=== PATIENT | female | born 1965 | race Caucasian/White ===

== ENCOUNTER 2018-03-26 12:51 | Inpatient (IN) | payer MEDICAID ==
[~2018-03-26] VITALS: Ht 167.6 cm; Wt 108.9 kg
--- NOTE | 2018-03-26 12:51 | NUR ---
Patient BIBA BLS accompanied by [place] [employer], transferred to bed 7. RN evaluating patient at bedside.
[2018-03-26 13:02] VITALS: BP 158/108
--- NOTE | 2018-03-26 13:10 | NUR ---
PATIENT BIBA WITH COMPLAINTS OF SHORTNESS OF BREATH AND 5150 HOLD [address]ACEMENT. PATIENT IS GRAVELY DISABLED. LIVES IN A HOTEL THAT IS OVERRUN BY BUGS. PATIENT HAS ANTS CRAWLING OVER HER. PATIENT ALSO HAS RASH OVER LOWER ABDOMEN, PELVIC ARE, AND BETWEEN LEGS; PICTURES TAKEN. PATIENT CONFUSED. NO COMPLAINTS OF PAIN, VSS. PATIENT STATES SHE CAN'T BREATH, APPLIED 2L O2 VIA NASAL CANNULA. ASSISTED PATIENT INTO A GOWN, SITTING UP IN BED. ED MD MADE AWARE OF PATIENT STATUS.
--- NOTE | 2018-03-26 13:14 | NUR ---
Dr. Hensley evaluating patient at bedside.
[2018-03-26] MEDS ORDERED: NACL 0.9% 1,000 ML IV ONE ×2 (13:23→15:00)
[2018-03-26 13:58] LABS: BASOPHILS # (AUTO) 0.1 K/uL (0.00-0.22); BASOPHILS % (AUTO) 0.5 % (0.0-2.0); HEMOGLOBIN 13.8 g/dL (12.0-16.0); LYMPHOCYTES % (AUTO) 7.4 % (20.5-51.1); MEAN CORPUSCULAR HEMOGLOBIN 30 pg (27-31); MEAN CORPUSCULAR HGB CONC 31 g/dL (33-37); MEAN CORPUSCULAR VOLUME 98.2 fL (80-94); MONOCYTES # (AUTO) 0.7 K/uL (0.8-1.0); MONOCYTES % (AUTO) 5.6 % (1.7-9.3); NEUTROPHILS # (AUTO) 11.3 K/uL (1.8-7.7); NEUTROPHILS % (AUTO) 86.5 % (42.2-75.2); PLATELET COUNT (AUTO) 364 K/uL (140-450); RED BLOOD CELL COUNT(AUTO) 4.58 MIL/uL (4.20-5.40); RED CELL DISTRIBUTION WIDTH 16.7 % (11.6-13.7); WHITE BLOOD COUNT (AUTO) 13.1 K/uL (4.8-10.8)
[2018-03-26 14:39] LABS: ALBUMIN 3.4 g/dL (3.4-5.0); ASPARTATE AMINOTRANSFERASE 115 U/L (15-37)
[2018-03-26 14:40] LABS: ANION GAP 27.9 (8-16); CARBON DIOXIDE 10.9 mmol/L (21-32); CHLORIDE 99 mmol/L (98-107); CREATININE 1.5 mg/dL (0.6-1.3); GFR ARICAN-AMERICAN 47 mL/min (>90); POTASSIUM 4.8 mmol/L (3.5-5.1); SODIUM SERUM 133 mmol/L (136-145); UREA NITROGEN, BLOOD 27 mg/dL (7-18)
[2018-03-26 14:43] LABS: GLUCOSE 874 mg/dL (74-106)
[2018-03-26] MEDS ORDERED: INSULIN REGULAR, HUMAN 100 UNIT/ML VIAL SUBQ ONE (15:00)
[2018-03-26 15:15] LABS: MAGNESIUM 2.6 mg/dL (1.8-2.4)
[2018-03-26 15:15] LABS: APPEARANCE,URINE CLEAR (CLEAR); BILIRUBIN,URINE NEGATIVE (NEGATIVE); BLOOD, URINE 2+ (NEGATIVE); COLOR,URINE YELLOW (YELLOW); LEUKOCYTE ESTERASE ,URINE NEGATIVE (NEGATIVE); NITRITE, URINE NEGATIVE (NEGATIVE); PH,URINE 5.5 (5.0-9.0); UGLUCOSE 3+ (NEGATIVE)
[2018-03-26 15:21] LABS: BARBITURATE, URINE NEG. ng/ml (NEG <=200); BENZODIAZEPINE, URINE NEG. ng/mL (NEG <=200); CANNABINOID, URINE NEG. ng/mL (NEG <=50); COCAINE, URINE NEG. ng/mL (NEG <=300); OPIATE, URINE NEG. ng/mL (NEG <=2000); PHENCYCLIDINE SCREEN,URINE NEG. ng/mL (NEG <=25)
[2018-03-26 15:40] LABS: ACETONE, SERUM LARGE (NEGATIVE)
[2018-03-26] MEDS ORDERED: SODIUM BICARBONATE 8.4% PFS 50 MEQ/50 ML SYR IVP ONE (15:50)
[2018-03-26 15:53] LABS: RBC,URINE 0-5 (RARE) /HPF (0-5); YEAST,URINE Few /HPF (None Seen)
[2018-03-26] MEDS ORDERED: DEXT 5% / NACL 0.45% 1,000 ML IV ONE (16:23)
[2018-03-26] MEDS: NACL 0.9% 1,000 ML IV SCH ×2 (16:23→21:38)
[2018-03-26] MEDS ORDERED: ZOLPIDEM 5 MG TAB PO PRN (16:25)
[2018-03-26] MEDS ORDERED: INSULIN REGULAR, HUMAN 100 UNIT in NACL 0.9% 100 ML IV SCH ×2 (16:25)
[2018-03-26] MEDS ORDERED: ONDANSETRON 4 MG/2 ML VIAL IVP PRN (16:25)
[2018-03-26] MEDS ORDERED: ACETAMINOPHEN 325 MG TAB PO PRN (16:25)
[2018-03-26] MEDS ORDERED: DEXTROSE 50% 50 ML SYR IVP PRN (16:25)
--- NOTE | 2018-03-26 16:50 | NUR ---
Patient appears to be resting comfortably in bed. Vital Signs within normal limits. Respirations even and unlabored.
--- NOTE | 2018-03-26 16:58 | NUR ---
Dr. Dimas evaluating patient at bedside.
[2018-03-26 17:16] LABS: FREE T4 (FREE THYROXINE) 0.96 ng/dL (0.76-1.46); PHOSPHORUS 5.1 mg/dL (2.5-4.9); THYROID STIMULATING HORMONE 1.22 uIU/mL (0.34-3.74)
--- NOTE | 2018-03-26 17:20 | NUR ---
Patient appears to be resting comfortably in bed. Vital Signs within normal limits. Respirations even and unlabored.
[2018-03-26] MEDS: BLOOD GLUCOSE MONITORING 1 DEV DEV FS SCH ×9 (17:25→23:46)
[2018-03-26] MEDS ORDERED: LORazepam 2 MG/ML VIAL IVP SCH (18:00)
--- NOTE | 2018-03-26 18:20 | NUR ---
ADMITTED PT FROM ER BY LACEY, PT AWAKE BUT EPISODES OF CONFUSION NOTED. HOOKED PT TO BEDSIDE MONITOR SHOWING SR, ON O2 NC 2L/MIN, NO S/S OF RESPIRATORY DISTRESS NOTED. IV SITE INTACT AND PATENT. SKIN NON INTACT ( SEE WOUND ASSESSMENT) PT ABLE TO MOVE HER EXTREMITIES. ORIENTED PT ENVIRONMENT, CALL LIGHT IN REACH, WILL CONTINUE TO MONITOR. Addendum: 03/26/18 at 2257 by Richard Parra RN BEDSIDE MONITOR SHOWS ST
[2018-03-26] MEDS ORDERED: INSULIN REGULAR, HUMAN 100 UNIT/ML VIAL SUBQ SCH (18:30)
--- NOTE | 2018-03-26 18:45 | NUR ---
CENTRAL LINE CONSENT OBTAINED AT PER DR. MICHELE.
[2018-03-26 19:00] VITALS: BP 130/57
--- NOTE | 2018-03-26 19:00 | NUR ---
REPORT GIVEN TO PM NURSE KOFI
[2018-03-26] MEDS ORDERED: PIPERACILLIN/TAZOBACTAM 2.25 GM VIAL IV ONE ×2 (19:02→23:57)
--- NOTE | 2018-03-26 19:10 | NUR ---
RECEIVED BEDSIDE REPORT FROM MORNING NURSE, PATIENT AWAKE, AAO X2, ABLE TO MAKE NEEDS KNOWN AND FOLLOW COMMANDS. NO ACUTE DISTRESS NOTED. BILATERAL LUNGS SOUND CLEAR, O2 SAT 99% WITH 2L/M OXYGEN VIA NC. ST ON THE MONITOR. HR 112 NOTED. PATIENT ABLE TO MOVE BUE/BLE, SLIGHTLY GENERALIZED WEAKNESS NOTED. PT HAS PERIPHERAL LINE TO LEFT AC 20G RUNNING WITH INSULIN DRIP 10UNITS/HR AND NS 200ML/HR. LINE IS INTACT AND PATENT. PATIENT HAS RASH TO BILATERAL THIGHS AND ABDOMEN NOTED. DENIES ANY PAIN OR DISCOMFORT AT THIS TIME. AT BEDSIDE TO INSERT CENTRAL LINE. CALL LIGHT WITHIN REACH. WILL CONTINUE TO MONITOR.
[2018-03-26 20:00] VITALS: BP 155/91
--- NOTE | 2018-03-26 20:20 | NUR ---
AT BEDSIDE TO CHECK THE PATIENT, WILL FOLLOW THE ORDERS.
[2018-03-26 21:00] VITALS: BP 145/74
[2018-03-26] MEDS: NACL 0.9% IV SCH (21:27)
[2018-03-26] MEDS: PIPERACILLIN IV SCH (21:27)
[2018-03-26] MEDS: TAZOBACTAM IV SCH (21:27)
[2018-03-26] MEDS: DOCUSATE SODIUM 100 MG GELCAP PO SCH (21:37)
[2018-03-26 22:00] VITALS: BP 150/87
--- NOTE | 2018-03-26 22:30 | NUR ---
PATIENT IN ASLEEP, AROUSABLE TO VOICE. NO ACUTE DISTRESS NOTED. DENIES ANY PAIN OR DISCOMFORT. ST ON THE MONITOR. CONTINUE TO MONITOR BS EVERY HOURLY.
[2018-03-26 23:00] VITALS: BP 127/54
[2018-03-26] MEDS ORDERED: DEXT 5% / NACL 0.45% 1,000 ML IV SCH (23:45)
[2018-03-27] VITALS (13 sets, daily range): BP systolic 127–157; BP diastolic 43–110
[2018-03-27 00:24] LABS: ANION GAP 18.1 (8-16); CREATININE 1.1 mg/dL (0.6-1.3); POTASSIUM 3.1 mmol/L (3.5-5.1)
[2018-03-27] MEDS: PIPERACILLIN IV SCH ×2 (00:27→06:37)
[2018-03-27] MEDS: TAZOBACTAM IV SCH ×2 (00:27→06:37)
[2018-03-27] MEDS: BLOOD GLUCOSE MONITORING 1 DEV DEV FS SCH ×21 (00:27→20:34)
[2018-03-27] MEDS: NACL 0.9% IV SCH ×2 (00:27→06:37)
--- NOTE | 2018-03-27 01:50 | NUR ---
NOTIFIED TO ABOUT BS 212 AND POTASSIUM 3.1. STATED THAT SHE WILL ORDER TO REPLACE THE POTASSIUM. WILL FOLLOW THE ORDERS.
[2018-03-27] MEDS ORDERED: POTASSIUM CHLORIDE 40 MEQ in NACL 0.9% 1,000 ML IV SCH ×2 (02:30→16:23)
[2018-03-27] MEDS ORDERED: KCL 20 MEQ/WATER INJ PREMIX 100 ML IV SCH (03:00)
[2018-03-27] MEDS ORDERED: POTASSIUM CHLORIDE 8 MEQ TABER PO SCH (03:00)
[2018-03-27] MEDS ORDERED: SODIUM PHOS / POTASSIUM PHOS 1 PKT PDR PO SCH (03:00)
--- NOTE | 2018-03-27 03:15 | NUR ---
ADMINISTERED POTASSIUM 8MEQ , NEUTRO PHOS 1 PACKET BY MOUTH, PATIENT TOLERATED WELL. NO ACUTE DISTRESS NOTED. WILL CONTINUE TO MONITOR.
--- NOTE | 2018-03-27 04:36 | NUR ---
DR. MIGUEL MADE AWARE OF BG=71 AND ANION GAP, K, MG, AND PHOS RESULTS. Addendum: 03/27/18 at 1649 by Leslie Bermeo RN DELETE THE CHARTING. WRONG TIME ENTERED.
--- NOTE | 2018-03-27 05:00 | NUR ---
PATIENT IN ASLEEP AT THIS TIME, AROUSABLE TO VOICE. NO ACUTE DISTRESS NOTED. DENIES PAIN OR DISCOMFORT. WILL CONTINUE TO MONITOR.
[2018-03-27] MEDS ORDERED: COMMUNICATION ORDER MC PRN ×2 (05:05→07:25)
[2018-03-27 06:20] LABS: ANION GAP 14.7 (8-16); CARBON DIOXIDE 16.6 mmol/L (21-32); CREATININE 1.1 mg/dL (0.6-1.3); POTASSIUM 3.3 mmol/L (3.5-5.1)
[2018-03-27 06:24] LABS: CHOL/HDL RATIO 3.6 (1-4.5)
--- NOTE | 2018-03-27 07:00 | NUR ---
PATIENT TO CT HEAD AT THIS TIME, NO ACUTE DISTRESS NOTED. VSS. DENIES PAIN AT THIS TIME.
[2018-03-27] MEDS ORDERED: DEXT 5% / NACL 0.45% 1,000 ML IV SCH (07:25)
--- NOTE | 2018-03-27 07:25 | NUR ---
RECEIVED BEDSIDE REPORT FROM RESIDENT CARE AID RN. PT JUST CAME BACK FROM CT SCAN. NO S/SX OF ACUTE DISTRESS NOTED AT THIS TIME. AFEBRILE. PT IS ALERT AND ORIENTED X 2, FOLLOWS SIMPLE COMMANDS AND ABLE TO MAKE NEEDS KNOWN. SINUS RHYTHM ON MONITOR, S1 +S2 HEARD. PT IS ON ROOM AIR, O2 SAT 98%, BREATHING EVEN AND UNLABORED, NO SOB NOTED. CENTRAL LINE TLC TO RIGHT IJ ASYMPTOMATIC, PATENT AND INTACT, RECEIVING INSULIN DRIP AT 10 UNITS/HR AND NORMAL SALINE AT 200 ML/HR. ABDOMEN ROUND, SOFT, NONTENDER W/ ACTIVE BOWEL SOUNDS. SKIN IS DRY AND WARM TO TOUCH. RASHES TO BILATERAL THIGHS, ABDOMEN AND BUTTOCKS AREA NOTED. PT IS ABLE TO MOVE ALL EXTREMITIES AND ABLE TO REPOSITION BY HERSELF. MILD WEAKNESS NOTED. NO C/O PAIN OR DISCOMFORT AT THIS TIME. BED IN LOWEST POSITION AND CALL LIGHT WITHIN REACH. WILL CONTINUE TO MONITOR.
--- NOTE | 2018-03-27 07:30 | NUR ---
DR. HUANG AT BEDSIDE TO SEE AND EXAMINE PT. WILL FOLLOW UP ON ORDERS.
--- NOTE | 2018-03-27 07:36 | NUR ---
REPORT GIVEN TO MORNING NURSE FOR CONTINUITY OF CARE.
[2018-03-27] MEDS ORDERED: CALCIUM ACETATE 667 MG TAB PO SCH (08:00)
--- NOTE | 2018-03-27 08:04 | NUR ---
CALLED DR MIKI HUANG [phone] REVIEWED [facility] SAMPLE REPORT NO NEW ORDERS
[2018-03-27 08:19] LABS: ANION GAP 14.9 (8-16); BASOPHILS # (AUTO) 0.1 K/uL (0.00-0.22); BASOPHILS % (AUTO) 0.5 % (0.0-2.0); CARBON DIOXIDE 17.7 mmol/L (21-32); CREATININE 1.2 mg/dL (0.6-1.3); EOSINOPHILS # (AUTO) 0.1 K/uL (0-0.4); EOSINOPHILS % (AUTO) 0.9 % (0.0-4.0); HEMATOCRIT 35.7 % (36-48); HEMOGLOBIN 12.1 g/dL (12.0-16.0); LYMPHOCYTES # (AUTO) 1.6 K/uL (2.5-16.5); LYMPHOCYTES % (AUTO) 14.7 % (20.5-51.1); MEAN CORPUSCULAR HEMOGLOBIN 31 pg (27-31); MEAN CORPUSCULAR HGB CONC 34 g/dL (33-37); MEAN CORPUSCULAR VOLUME 90.5 fL (80-94); MONOCYTES # (AUTO) 0.8 K/uL (0.8-1.0); MONOCYTES % (AUTO) 7.9 % (1.7-9.3); NEUTROPHILS # (AUTO) 8.1 K/uL (1.8-7.7); PLATELET COUNT (AUTO) 239 K/uL (140-450); RED BLOOD CELL COUNT(AUTO) 3.95 MIL/uL (4.20-5.40); RED CELL DISTRIBUTION WIDTH 14.6 % (11.6-13.7); WHITE BLOOD COUNT (AUTO) 10.7 K/uL (4.8-10.8)
[2018-03-27 08:21] LABS: POTASSIUM 2.6 mmol/L (3.5-5.1)
[2018-03-27] MEDS: FLUCONAZOLE 100 MG TAB PO SCH (08:22)
[2018-03-27] MEDS: DOCUSATE SODIUM 100 MG GELCAP PO SCH ×2 (08:22→20:35)
[2018-03-27] MEDS: CALCIUM CARB/VIT-D 500 MG/200 IU 1 TAB PO SCH (08:22)
--- NOTE | 2018-03-27 08:22 | NUR ---
CRITICAL LAB RESULTS RECEIVED. NOTIFIED THE FINDINGS TO DR. MIGUEL. WILL SEE THE PT.
[2018-03-27] MEDS: POTASSIUM CHL 40 MEQ/ D5-1/2NS 1,000 ML IV SCH ×3 (08:37→17:22)
[2018-03-27] MEDS ORDERED: MAGNESIUM OXIDE 400 MG TAB PO SCH (09:00)
--- NOTE | 2018-03-27 09:00 | NUR ---
BED BATH GIVEN. PT TOLERATED WELL. PT VOIDED USING URINAL, CLEAR YELLOW URINE NOTED. NO S/SX OF DISTRESS NOTED.
--- NOTE | 2018-03-27 09:10 | NUR ---
BREAKFAST PROVIDED AND NEEDS WELL ATTENDED. PT ABLE TO EAT INDEPENDENTLY. HOB ELEVATED, BED IN LOWEST POSITION AND SAFETY PRECAUTIONS IN PLACE. WILL CONTINUE TO MONITOR.
[2018-03-27] MEDS: KCL 20 MEQ/WATER INJ PREMIX 100 ML IV SCH ×2 (09:30→11:30)
--- NOTE | 2018-03-27 09:36 | NUR ---
NEW K-RIDER ORDER NOTED TO BE GIVEN AT 9:30AM AND D5 1/2NS WITH KCL 40 mEq FLUID IS BEING ADMINISTERED AT THIS TIME WELL. CALLED DR. HUANG AND ORDER RECEIVED NOT TO ADMINISTER K-RIDER AND HE WILL RE-CHECK THE SERUM K LEVEL THAT IS SCHEDULED TO BE DRAWN AT NOON. NOTED AND CARRIED OUT.
[2018-03-27] MEDS: SODIUM PHOS / POTASSIUM PHOS 1 PKT PDR PO SCH ×3 (09:42→16:32)
[2018-03-27] MEDS: QUEtiapine FUMARATE 25 MG TAB PO SCH ×2 (09:42→20:35)
[2018-03-27] MEDS: NYSTATIN/TRIAMCINOLONE CRM 15 GM TUBE TP SCH ×2 (09:43→20:35)
--- NOTE | 2018-03-27 10:39 | NUR ---
PT'S FATHER AT BEDSIDE, UPDATES GIVEN ON PT'S CONDITION. PT IS SLEEPING COMFORTABLY, NO SIGNS OF DISTRESS NOTED AT THIS TIME. VSS. WILL CONTINUE TO MONITOR.
--- NOTE | 2018-03-27 11:00 | NUR ---
ULTRA SOUND TECH AT BED SIDE.
--- NOTE | 2018-03-27 11:12 | NUR ---
DR. BATRES, DR. BCUIO, AND DR. GONZALEZ AT BED SIDE. WILL FOLLOW UP WITH ANY ORDERS.
--- NOTE | 2018-03-27 11:40 | NUR ---
ULTRASOUND FOR LOWER EXTREMITIES COMPLETED. PT IS ASLEEP AT THIS TIME. VSS.
[2018-03-27] MEDS ORDERED: PIPER/TAZO 2.25GM/D5W PREMIX 50 ML IV SCH (12:00)
--- NOTE | 2018-03-27 12:00 | NUR ---
LUNCH SERVED. PT'S FATHER AT BEDSIDE. NO C/O DISCOMFORT AND NO SIGNS OF DISTRESS NOTED AT THIS TIME. SAFETY MEASURES ENSURED.
--- NOTE | 2018-03-27 12:12 | NUR ---
CALLED DR MIKI HUANG [phone] PER DR ANKIT MINER MD NOT IN AREA WILL HAVE HIM CALL BACK
[2018-03-27 12:15] LABS: ANION GAP 12.2 (8-16); CARBON DIOXIDE 17.8 mmol/L (21-32)
[2018-03-27] MEDS: PIPER/TAZO 3.375GM/D5W PREMIX 50 ML IV SCH ×2 (12:44→20:35)
--- NOTE | 2018-03-27 14:30 | NUR ---
PT'S BLOOD SUGAR IS 101. PT STILL RECEIVING INSULIN DRIP AT 5 UNITS/HR AND IV FLUID D5 1/2NS W/ 40 MEQ KCL AT 250 ML/HR (MAX RATE). DR. HUANG MADE AWARE OF BLOOD SUGAR. PER DR. HUANG, CONTINUE INSULIN DRIP AND IV FLUID ORDERED UNTIL ANION GAP CLOSES TWO CONSECUTIVE TIMES.
[2018-03-27] MEDS ORDERED: INSULIN LISPRO SLIDING SCALE 100 UNITS/ML VIAL SUBQ PRN (15:00)
--- NOTE | 2018-03-27 16:05 | NUR ---
CALLED DR MIKI HUANG [phone] TO [address] [facility] SAMPLE REPORT OUT OF AREA GAVE RESULTS TO DR WATTERS Addendum: 03/27/18 at 1826 by Javier Woo RT RESULTS TO DR GALO
[2018-03-27 16:21] LABS: ANION GAP 11.8 (8-16); CARBON DIOXIDE 19.4 mmol/L (21-32); CREATININE 0.9 mg/dL (0.6-1.3); POTASSIUM 3.2 mmol/L (3.5-5.1)
[2018-03-27] MEDS ORDERED: MAG SULF 2000 MG/WATER PREMIX 100 ML IV ONE (16:35)
--- NOTE | 2018-03-27 16:36 | NUR ---
DR. MIGUEL MADE AWARE OF BG=71 AND ANION GAP, K, MG, AND PHOS RESULTS.
--- NOTE | 2018-03-27 16:42 | NUR ---
ORDER RECEIVED FROM DR. OLIVO TO CONTINUE WITH D5 1/2 NS K 40 CAIT IVF @250ML/HR AND INSULIN DRIP @ THE CURRENT RATE AND STOP THE INSULIN DRIP ONE HOUR AFTER LANTUS IS ADMINISTERED.
--- NOTE | 2018-03-27 16:55 | NUR ---
LANTUS INSULIN 15 UNITS GIVEN ORDERED. PHARMACY UNAVAILABLE TO VERIFY MEDICATION AT THIS TIME. VERIFIED MEDICATION AND DOSAGE WITH CHARGE NURSE. INSULIN DRIP WILL BE DISCONTINUED ONE HOUR LATER ORDERED.
[2018-03-27] MEDS ORDERED: MAG SULF 2000 MG/WATER PREMIX 50 ML IV ONE ×2 (17:07→18:04)
--- NOTE | 2018-03-27 17:10 | NUR ---
MAG SULFATE 1ST BAG ADMINISTERED ORDERED. PHARMACY NOT AVAILABLE AT THIS TIME. VERIFIED MEDICATION, DOSAGE AND RATE WITH CHARGE NURSE.
--- NOTE | 2018-03-27 17:20 | NUR ---
DINNER PROVIDED. PT ABLE TO EAT INDEPENDENTLY. ABLE TO MALE NEEDS KNOWN. NEEDS WELL ATTENDED AND SAFETY PRECAUTIONS IN PLACE. WILL CONTINUE TO MONITOR.
--- NOTE | 2018-03-27 17:55 | NUR ---
INSULIN DRIP DISCONTINUED ORDERED.
--- NOTE | 2018-03-27 18:50 | NUR ---
NOTIFIED PT'S FATHER, MICHELLE DRIVER, REGARDING PT'S TRANSFER TO TELEMETRY ROOM 107A.
[2018-03-27] MEDS ORDERED: INSULIN LANTUS 100 UNITS/ML 10 ML VIAL SUBQ SCH (19:00)
--- NOTE | 2018-03-27 19:00 | NUR ---
PT TRANSFERRED TO TELEMETRY ROOM 107 A. PT IS IN STABLE CONDITION. NO ACUTE DISTRESS NOTED AT THIS TIME. REPORT GIVEN TO KATE RANGEL AT BEDSIDE.
--- NOTE | 2018-03-27 19:10 | NUR ---
RECEIVED PT IN STABLE CONDITION TRANSFERRED, FROM ICU NURSE. ON TELE MONITOR. ABLE TO AMBULATE FROM ICU BED TO ROOM BED 107 A. NO SOB NOTED AND DENIES ANY PAIN . PT IS OBESE. WITH SKIN RASHES ON UNDERARMS, LOWER ABDOMEN, PERIAREA AND BUTTOCKS UP TO MID BACK AREA. HAS IV FLUIDS INFUSING ON THE RT INTERNAL JUGULAR TRIPLE LUMEN CENTRAL LINE. ORIENTED TO ROOM .BED ON LOWEST POSITION, CALL LIGHT PLACED WITHIN EASY REACH. FREQUENT ROUNDS NEEDED ,BEDSIDE COMMODE PROVIDED AND INSTRUCTED PT TO CALL FOR ASSISTANCE. WILL CONTINUE TO MONITOR.
[2018-03-27] MEDS ORDERED: PNEUMOCOCCAL VACCINE 23 MCG/0.5 ML VIAL IMVAC SCH (19:30)
--- NOTE | 2018-03-27 20:50 | NUR ---
CAME SEEN AND EXAMINE PT. WITH NEW ORDER.AVANI FINCH.
--- NOTE | 2018-03-27 21:00 | NUR ---
HAS BEEN ASSISTED TO BSC. VOIDED WELL. BUT NEED REINFORCEMENT REGARDING CALLING BEFORE GETTING UP. AND TO TAKE CARE OF THE CENTRAL LINE. PROPER POSITIONING WHILE IN BED FOR THE LINE TO WORK.
[2018-03-27 21:11] LABS: ANION GAP 11.6 (8-16); CARBON DIOXIDE 19.6 mmol/L (21-32); POTASSIUM 4.2 mmol/L (3.5-5.1)
[2018-03-27] MEDS: INSULIN LISPRO SLIDING SCALE 100 UNITS/ML VIAL SUBQ PRN (21:15)
[2018-03-27 21:18] LABS: CREATININE 0.9 mg/dL (0.6-1.3)
--- NOTE | 2018-03-27 23:00 | NUR ---
MADE ROUNDS. PT IS ASLEEP. NO S/S OF ANY DISCOMFORT NOTED.
[2018-03-28 00:45] VITALS: BP 135/69
--- NOTE | 2018-03-28 01:00 | NUR ---
ASSISTED AGAIN TO THE BSC. VOIDED WELL. KEPT DRY AND CLEAN.
[2018-03-28] MEDS: POTASSIUM CHL 40 MEQ/ D5-1/2NS 1,000 ML IV SCH (02:40)
--- NOTE | 2018-03-28 02:50 | NUR ---
ASLEEP. NO S/S OF ANY DISCOMFORT NOR PAIN NOTED. WILL CONTINUE TO MONITOR.
[2018-03-28 03:45] VITALS: BP 131/88
[2018-03-28] MEDS: BLOOD GLUCOSE MONITORING 1 DEV DEV FS SCH ×4 (05:40→21:47)
[2018-03-28] MEDS: NACL 0.9% 1,000 ML IV SCH ×2 (05:51→14:10)
[2018-03-28] MEDS ORDERED: INSULIN LISPRO 100 UNITS/ML VIAL SUBQ SCH (06:00)
[2018-03-28] MEDS ORDERED: SODIUM PHOS / POTASSIUM PHOS 1 PKT PDR PO SCH (06:00)
--- NOTE | 2018-03-28 06:03 | NUR ---
BLOOD SUGAR WAS CHECKED THIS AM RESULT 476. DR. CONNOLLY MADE AWARE. WITH ORDERS. HUMALOG 12 UNITS SUBQ GIVEN COVERAGE AND IVF CHANGED TO NS 150ML /HR.
[2018-03-28 06:16] LABS: HEMATOCRIT 33.5 % (36-48); HEMOGLOBIN 11.5 g/dL (12.0-16.0); MEAN CORPUSCULAR HEMOGLOBIN 31 pg (27-31); MEAN CORPUSCULAR HGB CONC 34 g/dL (33-37); MEAN CORPUSCULAR VOLUME 91.3 fL (80-94); RED BLOOD CELL COUNT(AUTO) 3.68 MIL/uL (4.20-5.40); WHITE BLOOD COUNT (AUTO) 8.7 K/uL (4.8-10.8)
[2018-03-28 06:17] LABS: BASOPHILS # (AUTO) 0.1 K/uL (0.00-0.22); BASOPHILS % (AUTO) 0.9 % (0.0-2.0); EOSINOPHILS # (AUTO) 0.1 K/uL (0-0.4); LYMPHOCYTES % (AUTO) 22.5 % (20.5-51.1); MONOCYTES # (AUTO) 0.9 K/uL (0.8-1.0); MONOCYTES % (AUTO) 10.4 % (1.7-9.3); NEUTROPHILS # (AUTO) 5.6 K/uL (1.8-7.7); NEUTROPHILS % (AUTO) 65.2 % (42.2-75.2); PLATELET COUNT (AUTO) 189 K/uL (140-450); RED CELL DISTRIBUTION WIDTH 15.1 % (11.6-13.7)
[2018-03-28 06:21] LABS: PHOSPHORUS 2.3 mg/dL (2.5-4.9)
[2018-03-28 06:26] LABS: ANION GAP 14.7 (8-16); CARBON DIOXIDE 19.5 mmol/L (21-32); CREATININE 0.9 mg/dL (0.6-1.3); POTASSIUM 4.2 mmol/L (3.5-5.1)
--- NOTE | 2018-03-28 07:21 | NUR ---
ENDORSED PT IN STABLE CONDITION TO AM NURSE FOR CONTINUITY OF CARE.
--- NOTE | 2018-03-28 07:22 | NUR ---
RECEIVED REPORT AT BEDSIDE. PATIENT ASLEEP, EASILY AWAKENS. ALERT TO SELF, CONFUSED TO PLACE AND EVENT. ORIENTED PT TO PLACE AND ENVIRONMENT, EDUCATION GIVEN REGARDING NEW ONSET DIABETES, VERBALIZED UNDERSTANDING. DENIES PAIN. ON ROOM AIR, NO S/S OF ACUTE DISTRESS NOTED. BED ALARMS CHECKED. CALL LIGHT WITHIN REACH. PATIENT IS MODERATELY OBESE. MULTIPLE RASH WITH SCABBING NOTED ABDOMINAL AND UPPER EXTREMITIES.
[2018-03-28 08:00] VITALS: BP 133/81
[2018-03-28] MEDS: DOCUSATE SODIUM 100 MG GELCAP PO SCH ×2 (08:58→21:48)
[2018-03-28] MEDS: CALCIUM CARB/VIT-D 500 MG/200 IU 1 TAB PO SCH (08:59)
[2018-03-28] MEDS: SODIUM PHOS / POTASSIUM PHOS 1 PKT PDR PO SCH ×3 (08:59→17:37)
[2018-03-28] MEDS: metFORMIN 500 MG TAB PO SCH ×2 (08:59→17:37)
[2018-03-28] MEDS: FLUCONAZOLE 100 MG TAB PO SCH (08:59)
[2018-03-28] MEDS ORDERED: INSULIN LANTUS 100 UNITS/ML 10 ML VIAL SUBQ SCH ×5 (09:00→19:00)
[2018-03-28] MEDS ORDERED: QUEtiapine FUMARATE 100 MG TAB PO SCH ×2 (09:00→21:00)
[2018-03-28] MEDS: NYSTATIN/TRIAMCINOLONE CRM 15 GM TUBE TP SCH ×2 (09:10→21:55)
--- NOTE | 2018-03-28 10:06 | NUR ---
PATIENT HAS BEEN SCREENED AND CATEGORIZED HIGH NUTRITION RISK. PATIENT WILL BE SEEN WITHIN 1-2 DAYS OF ADMISSION. 03/28/[address]
--- NOTE | 2018-03-28 10:33 | NUR ---
PATIENT ASSISTED TO BED SIDE COMMODE. LETHARGIC. NO STRENGTH DEFICIT NOTED. PATIENT SEEN BY DR. FELIX AT BEDSIDE. MD MADE AWARE OF PATIENT CONDITION, TO FOLLOW.
[2018-03-28 12:00] VITALS: BP 138/86
[2018-03-28] MEDS: INSULIN LISPRO SLIDING SCALE 100 UNITS/ML VIAL SUBQ PRN ×3 (12:01→21:51)
--- NOTE | 2018-03-28 12:15 | NUR ---
DR. HUANG MADE AWARE OF CURRENT BS 428. NEW ORDERS RECEIVED. MEDICATED PT WITH 18UNITS HUMALOG ORDERED.
--- NOTE | 2018-03-28 14:56 | NUR ---
03/28/18 RD INITIAL ASSESSMENT COMPLETED PLEASE REFER TO NUTRITION ASSESSMENT UNDER CARE ACTIVITY FOR ESTIMATED NUTRITIONAL NEEDS. 1. CONTINUE CCHO 60 GM DIET TOLERATED 2. PROVIDED DIABETES NUTRITION EDUCATION 3. RD TO FOLLOW-UP 3-5 DAYS, MODERATE RISK SOPHIA TREVINO RD
[2018-03-28 16:00] VITALS: BP 135/85
--- NOTE | 2018-03-28 16:40 | NUR ---
PATIENT SEEN BY DR. JUSTIN AT BEDSIDE. NO S/S OF ACUTE DISTRESS NOTED.
--- NOTE | 2018-03-28 19:25 | NUR ---
SBAR REPORT GIVEN TO NIGHT NURSE AT PT BEDSIDE. NO S/S OF ACUTE DISTRESS NOTED.
--- NOTE | 2018-03-28 19:25 | NUR ---
RECEIVED PT REPORT AT BEDSIDE. PT IN STABLE CONDITION. PT HAS R IJ TRIPLE LUMEN WITH NS RUNNING AT 125ML/HR. PT IS A/OX3. PT ON RA. PT HAS RASH ON ABDOMEN AND BACK. PT HAS NO C/O PAIN AT THIS TIME. BED IS LOCKED, LOWEST POSITION, WITH SIDE RAILS UP X2. CALL LIGHT IS WITHIN REACH. BOARD UPDATED. WILL CONTINUE TO MONITOR PT.
--- NOTE | 2018-03-28 21:51 | NUR ---
BS CHECKED, 295. INSULIN GIVEN PER MD ORDER. PT TOLERATED WELL. WILL CONTINUE TO MONITOR.
[2018-03-29] VITALS: BP 143/75
[2018-03-29] MEDS: NACL 0.9% 1,000 ML IV SCH ×4 (00:52→20:56)
--- NOTE | 2018-03-29 00:52 | NUR ---
NEW BAG OF IV FLUIDS STARTED. ALL PT NEEDS ARE MET AT THIS TIME. WILL CONTINUE TO MONITOR.
--- NOTE | 2018-03-29 03:05 | NUR ---
PT IS ASLEEP IN BED NO S/SX OF DISTRESS. WILL CONTINUE TO MONITOR.
[2018-03-29] MEDS: BLOOD GLUCOSE MONITORING 1 DEV DEV FS SCH ×4 (05:10→20:31)
[2018-03-29] MEDS: INSULIN LISPRO SLIDING SCALE 100 UNITS/ML VIAL SUBQ PRN ×4 (05:18→21:05)
--- NOTE | 2018-03-29 05:18 | NUR ---
BS CHECKED, 255. INSULIN COVERAGE ADMINISTERED PER MD ORDER. WILL CONTINUE TO MONITOR PT.
--- NOTE | 2018-03-29 07:20 | NUR ---
RECEIVED REPORT FROM NIGHTSHIFT NURSE AT BEDSIDE. PATIENT IS ASLEEP AT THIS TIME BUT AROUSABLE TO NAME. PATIENT PRESESNTS IN SEMI-FOWLERS POSITION. NO DISTRESS NOTED. NO PAIN NOTED. PATIENT IS ALERT AND ORIENTED X2. PATIENT HAS A RIGHT IJ TRIPLE LUMEN RUNNING NS AT 125 ML/HR. PATIENT HAS COMMODE AT BEDSIDE. PATIENT ABLE TO SAFELY TRANSFER HERSELF TO COMMODE. PUT BED IN LOWEST POSITION. APPROPRIATE SIGNS PLACED OUTSIDE OF PATIENT'S ROOM. WILL CONTINUE TO MONITOR PATIENT.
--- NOTE | 2018-03-29 07:20 | NUR ---
ENDORSED PT TO DAY SHIFT NURSE FOR CONTINUITY OF CARE. PT IN STABLE CONDITION.
[2018-03-29 08:00] VITALS: BP 138/57
[2018-03-29 08:56] LABS: WHITE BLOOD COUNT (AUTO) 6.4 K/uL (4.8-10.8)
[2018-03-29 08:57] LABS: BASOPHILS % (AUTO) 1.3 % (0.0-2.0); EOSINOPHILS % (AUTO) 1.6 % (0.0-4.0); HEMATOCRIT 34.3 % (36-48); HEMOGLOBIN 11.4 g/dL (12.0-16.0); LYMPHOCYTES % (AUTO) 33.4 % (20.5-51.1); MEAN CORPUSCULAR HEMOGLOBIN 30 pg (27-31); MEAN CORPUSCULAR HGB CONC 33 g/dL (33-37); MEAN CORPUSCULAR VOLUME 90.7 fL (80-94); MONOCYTES % (AUTO) 9.2 % (1.7-9.3); NEUTROPHILS % (AUTO) 54.5 % (42.2-75.2); PLATELET COUNT (AUTO) 175 K/uL (140-450); RED BLOOD CELL COUNT(AUTO) 3.79 MIL/uL (4.20-5.40); RED CELL DISTRIBUTION WIDTH 14.9 % (11.6-13.7)
[2018-03-29] MEDS ORDERED: QUEtiapine FUMARATE 100 MG TAB PO SCH (09:00)
[2018-03-29] MEDS: DOCUSATE SODIUM 100 MG GELCAP PO SCH ×3 (09:00→20:55)
[2018-03-29] MEDS: SODIUM PHOS / POTASSIUM PHOS 1 PKT PDR PO SCH ×4 (09:00→17:00)
[2018-03-29] MEDS: NYSTATIN/TRIAMCINOLONE CRM 15 GM TUBE TP SCH ×2 (09:00→21:12)
[2018-03-29] MEDS: CALCIUM CARB/VIT-D 500 MG/200 IU 1 TAB PO SCH ×2 (09:00→09:13)
[2018-03-29] MEDS ORDERED: INSULIN LANTUS 100 UNITS/ML 10 ML VIAL SUBQ SCH ×3 (09:00)
[2018-03-29] MEDS: FLUCONAZOLE 100 MG TAB PO SCH ×3 (09:13→11:22)
[2018-03-29] MEDS: risperiDONE 1 MG TAB PO SCH ×3 (09:14→11:22)
[2018-03-29] MEDS: metFORMIN 500 MG TAB PO SCH ×3 (09:14→17:53)
--- NOTE | 2018-03-29 09:17 | NUR ---
PATIENT REFUSED ALL MEDICATIONS BESIDES LANTUS. EXPLAINED BENEFITS OF EACH MEDICATION. PATIENT STILL REFUSED. PATIENT SAYS, "I DON'T NEED ANY OF THOSE MEDICATIONS". WILL NOTIFY THE DOCTOR.
--- NOTE | 2018-03-29 09:17 | NUR ---
CM NOTE FAXED ORDER TO TRANSFER TO PSYCH FACILITY TO [facility] [phone], [facility] FROM [facility] PH# [phone]
[2018-03-29 09:41] LABS: ANION GAP 16.8 (8-16); CARBON DIOXIDE 20.8 mmol/L (21-32); CREATININE 0.7 mg/dL (0.6-1.3); POTASSIUM 3.6 mmol/L (3.5-5.1)
--- NOTE | 2018-03-29 09:55 | NUR ---
PT NOTE 0950 RECEIVED ORDER FOR PT CAROL, CHART REVIEWED AND CLEARED FOR PT. Pt REFUSED TO PARTICIPATE WITH PT SAYING THAT SHE DOES NOT WANT TO DO IT RIGHT NOW. EXPLAINED BENEFITS OF PT PARTICIPATION AND OFFERED TO RETURN AT A LATER TIME BUT Pt STATES, "I'M SKIPPING PHYSICAL THERAPY FOR TODAY." WILL FOLLOW UP W/Pt TOMORROW, RN UPDATED.
--- NOTE | 2018-03-29 10:46 | NUR ---
PATIENT AGREED TO TAKE METFORMIN. PATIENT REFUSED RISPERIDONE AND FLUCONAZOLE. EXPLAINED BENEFITS OF TAKING MEDICATION TO PATIENT. PATIENT STILL REFUSED AND ASKED TO SPEAK TO DR. FELIX.
--- NOTE | 2018-03-29 11:25 | NUR ---
PATIENT AGREED TO TAKE RISPERDAL AND FLUCONAZOLE. WILL CONTINUE TO MONITOR PATIENT.
--- NOTE | 2018-03-29 13:00 | NUR ---
PATIENT RESTING IN BED. NO DISTRESS NOTED. WILL CONTINUE TO MONITOR PATIENT.
--- NOTE | 2018-03-29 13:07 | NUR ---
Packet faxed to Ana Rosa at [facility]. Called [facility] and spoke with Irineo Nolen. No beds. Packet faxed to [facility] for review. Called [facility] and spoke with Martha. No beds. Called [facility] and spoke with kristin. No beds.
[2018-03-29 16:00] VITALS: BP 120/67
--- NOTE | 2018-03-29 16:20 | NUR ---
PATIENT RESTING AT THIS TIME. NO DISTRESS NOTED. WILL CONTINUE TO MONITOR PATIENT.
--- NOTE | 2018-03-29 18:36 | NUR ---
SPOKE TO GROVER FROM [facility]. GROVER SAID THAT PATIENT'S BLOOD SUGAR HAS TO BE LESS THAN 200 FOR ACCEPTANCE. GROVER WILL FOLLOW UP WITH NIGHTSHIFT NURSE TO SEE WHAT PATIENT'S BLOOD SUGAR IS.
--- NOTE | 2018-03-29 19:05 | NUR ---
RECEIVED PT REPORT FROM DAY SHIFT NURSE AT BEDSIDE. PT IN STABLE CONDITION. PT HAS R IJ TRIPLE LUMEN WITH NS AT 100ML/HR. PT IS ON RA. RASH NOTED ON PT ABDOMEN AND BACK. NO C/O PAIN AT THIS PAIN. FAMILY IS AT BEDSIDE. BED LOCKED, LOWEST POSITION AND SIDE RAILS UP X2. BOARD UPDATED. CALL LIGHT WITHIN REACH. WILL CONTINUE TO MONITOR.
--- NOTE | 2018-03-29 19:05 | NUR ---
GAVE REPORT TO NIGHTSHIFT NURSE AT BEDSIDE. FAMILY MEMBER AT BEDSIDE. PATIENT IN STABLE CONDITION.
--- NOTE | 2018-03-29 21:05 | NUR ---
BS CHECKED, 308. INSULIN COVERAGE PROVIDED PER MD ORDER.
--- NOTE | 2018-03-29 22:10 | NUR ---
ASSISTED PT WITH BED BATH. CHANGED GOWN AND BED LINENS. PT NOW RESTING COMFORTABLY. ALL NEEDS ARE MET AT THIS TIME. WILL CONTINUE TO MONITOR.
[2018-03-30] VITALS: BP 151/67
--- NOTE | 2018-03-30 00:34 | NUR ---
PT SLEEPING IN BED. NO S/SX OF DISTRESS. WILL CONTINUE TO MONITOR.
--- NOTE | 2018-03-30 02:42 | NUR ---
NO CHANGE IN CONDITION. PT ASLEEP IN BED. WILL CONTINUE TO MONITOR.
--- NOTE | 2018-03-30 04:24 | NUR ---
At this time there are no beds available for placement , will continue to call and also endorsed to morning shift to continue to call for placement .
--- NOTE | 2018-03-30 04:53 | NUR ---
PT AWAKE IN BED WATCHING TV. ALL NEEDS ARE MET AT THIS TIME. WILL CONTINUE TO MONITOR PT.
[2018-03-30] MEDS: BLOOD GLUCOSE MONITORING 1 DEV DEV FS SCH ×3 (05:22→17:07)
[2018-03-30] MEDS: INSULIN LISPRO SLIDING SCALE 100 UNITS/ML VIAL SUBQ PRN ×4 (05:42→20:54)
--- NOTE | 2018-03-30 05:47 | NUR ---
BS CHECKED, 288. INSULIN COVERAGE PROVIDED PER MD ORDERS. PT TOLERATED WELL. WILL CONTINUE TO MONITOR.
--- NOTE | 2018-03-30 07:29 | NUR ---
ENDORSED PT TO DAY SHIFT NURSE FOR CONTINUITY OF CARE. PT IN STABLE CONDITION.
--- NOTE | 2018-03-30 07:30 | NUR ---
RECEIVED REPORT FROM DUSTER TENDER RN. PATIENT IS AAOX3, HAS NO SIGNS AND SYMPTOMS OF ACUTE DISTRESS NOTED AT THIS TIME. HAS RIGHT IJ TRIPLE LUMEN, INFUSING NS AT 100 ML/HR. SITE IS CLEAN, DRY, PATENT AND INTACT. PATIENT HAS COMMODE AT THE BEDSIDE. DISCUSSED PLAN OF CARE WITH PATIENT AND SHE VERBALIZED UNDERSTANDING. BED IN LOWEST POSITION, SIDE RAILS UP X2, CALL LIGHT WITHIN REACH. WILL CONTINUE TO MONITOR.
[2018-03-30 07:33] LABS: HEMATOCRIT 34.4 % (36-48); HEMOGLOBIN 11.5 g/dL (12.0-16.0); MEAN CORPUSCULAR HEMOGLOBIN 30 pg (27-31); MEAN CORPUSCULAR HGB CONC 33 g/dL (33-37); MEAN CORPUSCULAR VOLUME 91.2 fL (80-94); PLATELET COUNT (AUTO) 195 K/uL (140-450); RED BLOOD CELL COUNT(AUTO) 3.77 MIL/uL (4.20-5.40); RED CELL DISTRIBUTION WIDTH 14.8 % (11.6-13.7); WHITE BLOOD COUNT (AUTO) 6.8 K/uL (4.8-10.8)
[2018-03-30 07:34] LABS: EOSINOPHILS % (AUTO) 1.2 % (0.0-4.0); LYMPHOCYTES % (AUTO) 26.5 % (20.5-51.1); MONOCYTES % (AUTO) 12.2 % (1.7-9.3); NEUTROPHILS % (AUTO) 58.1 % (42.2-75.2)
[2018-03-30 07:51] LABS: CARBON DIOXIDE 22.9 mmol/L (21-32); CREATININE 0.7 mg/dL (0.6-1.3); POTASSIUM 3.9 mmol/L (3.5-5.1)
[2018-03-30 08:00] VITALS: BP 147/79
--- NOTE | 2018-03-30 08:40 | NUR ---
PATIENTS BLOOD SUGAR 427, WILL ADMINISTER LANTUS 45 UNITS ORDERED. HAS NO SIGNS AND SYMPTOMS OF DISTRESS.
--- NOTE | 2018-03-30 08:49 | NUR ---
LATE SUBMISSION: NS 1L 100ML/HR START TIME 1330 END TIME 1430 TO BE CONTINUED MY MST
[2018-03-30] MEDS: NYSTATIN/TRIAMCINOLONE CRM 15 GM TUBE TP SCH ×2 (09:00→21:00)
[2018-03-30] MEDS ORDERED: INSULIN LANTUS 100 UNITS/ML 10 ML VIAL SUBQ SCH (09:00)
[2018-03-30] MEDS: risperiDONE 1 MG TAB PO SCH (09:07)
[2018-03-30] MEDS: metFORMIN 500 MG TAB PO SCH ×2 (09:07→17:08)
[2018-03-30] MEDS: FLUCONAZOLE 100 MG TAB PO SCH (09:08)
[2018-03-30] MEDS: CALCIUM CARB/VIT-D 500 MG/200 IU 1 TAB PO SCH (09:08)
[2018-03-30] MEDS: DOCUSATE SODIUM 100 MG GELCAP PO SCH ×2 (09:08→20:54)
[2018-03-30] MEDS: SODIUM PHOS / POTASSIUM PHOS 1 PKT PDR PO SCH ×3 (09:08→17:07)
--- NOTE | 2018-03-30 09:19 | NUR ---
LATE SUBMISSION: NS1L WIDE OPEN START TIME 1518 END TIME 1555 TOTAL INFUSED 999ML
--- NOTE | 2018-03-30 11:55 | NUR ---
PATIENT RESTING IN BED. NO SIGNS AND SYMPTOMS OF DISTRESS NOTED.
--- NOTE | 2018-03-30 12:46 | NUR ---
PATIENT HAD LARGE BOWEL MOVEMENT
--- NOTE | 2018-03-30 14:20 | NUR ---
Principal Quality Engineer Notes: I Faxed to Vinnie Moy at Patient's Clinical information, and MD order for SNF Placement. Copper Plate Lithographer aware.
--- NOTE | 2018-03-30 14:29 | NUR ---
Healthcare Corporate Account Director Notes: I Called Ashia from admissions at [facility] at , I spoke to Mihaela to confirmed that patient clinical information was received. Per Mihaela Ang has step out and will let her know to call me back as soon as she returns. Mihaela did confirmed that patient information was received.
--- NOTE | 2018-03-30 14:33 | NUR ---
Liquor Bridge Operator Helper Notes: I meet with Patient's mother Heidi per her request to discuss patient's discharge and possible Jail Placement. Per Patient's mother patient needs assistance with her care and medication management. I informed and educated Patient's mother Heidi about process of placement. I also let her Know that I will be discussing with MD Tijerina patient's plan of care and will send inquires for SNF placement. Patient's mother thanked me for the assistance and stated that she will continue communicating with me for updates.
--- NOTE | 2018-03-30 15:42 | NUR ---
Tile Professional Notes: I Faxed to [facility] at Patient's Clinical information, and MD order for SNF Placement.
--- NOTE | 2018-03-30 15:45 | NUR ---
Women'S Ministry Director Notes: I Faxed to [facility] at ; Patient's Clinical information, and MD order for SNF Placement.
--- NOTE | 2018-03-30 15:51 | NUR ---
Junior Financial Analyst Notes: I Faxed to [facility] at Patient's Clinical information, and MD order for SNF Placement.
--- NOTE | 2018-03-30 15:53 | NUR ---
Dryer Operator Notes: I received a call form Ashia from admissions at [facility] stating that Julisa will like to meet with patient tomorrow and evaluate if Patient is appropriate for their facility placement.
[2018-03-30 16:00] VITALS: BP 142/74
--- NOTE | 2018-03-30 16:30 | NUR ---
PATIENT STABLE, RESTING IN BED.
--- NOTE | 2018-03-30 19:20 | NUR ---
ENDORSED PATIENT TO FERMENTER WINE RN FOR CONTINUITY OF CARE. PATIENT IN STABLE CONDITION.
--- NOTE | 2018-03-30 19:21 | NUR ---
RECEIVED REPORT FROM DAY SHIFT NURSE. AAOX3. PT'S DAD AT BEDSIDE. NO C/O PAIN. NO C/O SOB. ON ROOM AIR. PT HAS RIGHT IJ TRIPLE LUMEN, DRESSING CLEAN, DRY AND INTACT. NS AT 100 ML/HR INFUSING WELL. DISCUSSED PLAN OF CARE, PT'S VERBALIZED UNDERSTANDING. SAFETY PRECAUTION IN PLACE. CALL LIGHT WITHIN REACH.
--- NOTE | 2018-03-30 20:55 | NUR ---
BLOOD SUGAR CHECKED 303. DR. MORGAN ORDERED TO GIVE 8 UNITS OF HUMALOG AND CHECKED BS AGAIN AT 0000 HRS.
[2018-03-30] MEDS ORDERED: NYSTATIN/TRIAMCINOLONE CRM 15 GM TUBE TP SCH (21:00)
[2018-03-30] MEDS: NACL 0.9% 1,000 ML IV SCH ×2 (21:45→22:00)
[2018-03-31] VITALS: BP 150/75
--- NOTE | 2018-03-31 00:05 | NUR ---
BLOOD SUGAR CHECKED 210. 4 UNITS OF HUMALOG SUBQ GIVEN. PT TOLERATED WELL.
[2018-03-31] MEDS: INSULIN LISPRO SLIDING SCALE 100 UNITS/ML VIAL SUBQ PRN ×4 (00:27→12:33)
[2018-03-31] MEDS: BLOOD GLUCOSE MONITORING 1 DEV DEV FS SCH ×5 (00:30→16:23)
--- NOTE | 2018-03-31 02:40 | NUR ---
PT RESTING IN BED WITH EYES CLOSED. NO S/S OF DISTRESS NOTED.
--- NOTE | 2018-03-31 03:25 | NUR ---
No update from contacted facilities at this time. will continue to look for placement throughout shift. will endorse to morning shift to continue looking for placement as well.
--- NOTE | 2018-03-31 04:50 | NUR ---
BLOOD SUGAR CHECKED 220. 4 UNITS OF HUMALOG SUBQ GIVEN.
--- NOTE | 2018-03-31 06:30 | NUR ---
PT SLEEPING BUT EASILY AROUSABLE. NO S/S OF DISTRESS NOTED. SAFETY PRECAUTION IN PLACE. CALL LIGHT WITHIN REACH.
--- NOTE | 2018-03-31 07:10 | NUR ---
ENDORSED PT TO DAY SHIFT NURSE. PT IN STABLE CONDITION.
--- NOTE | 2018-03-31 07:15 | NUR ---
RECEIVED REPORT FROM ROENTGENOLOGY TEACHER RN. PATIENT IS AAOX3, HAS NO SIGNS AND SYMPTOMS OF ACUTE DISTRESS NOTED AT THIS TIME. HAS RIGHT IJ TRIPLE LUMEN, INFUSING NS AT 100 ML/HR. SITE IS CLEAN, DRY, PATENT AND INTACT. PATIENT HAS COMMODE AT THE BEDSIDE. DISCUSSED PLAN OF CARE WITH PATIENT AND SHE VERBALIZED UNDERSTANDING. BED IN LOWEST POSITION, SIDE RAILS UP X2, CALL LIGHT WITHIN REACH. WILL CONTINUE TO MONITOR.
[2018-03-31 08:00] VITALS: BP 134/89
[2018-03-31] MEDS: risperiDONE 1 MG TAB PO SCH (08:48)
[2018-03-31] MEDS: CALCIUM CARB/VIT-D 500 MG/200 IU 1 TAB PO SCH (08:48)
[2018-03-31] MEDS: metFORMIN 500 MG TAB PO SCH ×2 (08:48→17:15)
[2018-03-31] MEDS: DOCUSATE SODIUM 100 MG GELCAP PO SCH (08:48)
[2018-03-31] MEDS: SODIUM PHOS / POTASSIUM PHOS 1 PKT PDR PO SCH ×3 (08:49→17:15)
[2018-03-31] MEDS ORDERED: INSULIN LANTUS 100 UNITS/ML 10 ML VIAL SUBQ SCH (09:00)
[2018-03-31] MEDS ORDERED: FLUCONAZOLE 100 MG TAB PO SCH (09:00)
[2018-03-31] MEDS: NYSTATIN/TRIAMCINOLONE CRM 15 GM TUBE TP SCH (09:12)
--- NOTE | 2018-03-31 09:36 | NUR ---
PHYSICAL THERAPY CO-SIGN The Physical Therapy Progress Notes documented by Alarm Service Technician have been reviewed. I CONCUR W/HVAC LEAD NOTE; CONT PER TX PLAN Reviewed/Co-Signed by: Candis Spear, PT Documentation Done by: LOLIS BALES, HVAC LEAD Addendum: 03/31/18 at 0937 by Candis Spear PT Amended: Links added.
--- NOTE | 2018-03-31 10:56 | NUR ---
SUPERVISOR PLATING AND POINT ASSEMBLY HER TO EVALUATE PATIENT FOR PLACEMENT AT FACILITY.
--- NOTE | 2018-03-31 12:00 | NUR ---
PATIENTS BLOOD SUGAR IS 295, WILL COVER WITH INSULIN.
[2018-03-31 16:00] VITALS: BP 128/74
--- NOTE | 2018-03-31 16:01 | NUR ---
Drier And Pulverizer Tender Notes: I and randa SERNA met with Patient and mother Heidi to discuss and gather additional information about patient. I informed both that SNF Inquiries to several facilities continued to be send and some facilities have additional questions in regards to patients SSI assistance and family involvement and support. Per Patient she is getting $ 910.00 for SSI in a monthly basis, and is getting family support and care by mother and sister. Patient stated that she is interested on getting short term placement for SNF care for medication management. I let them both know that I will continue to follow up with facilities and if no placement is founded; I will also provide her with board and care resources and placement. Both agreed and thanked me for my assistance
--- NOTE | 2018-03-31 16:58 | NUR ---
Sales Developer Note: Per Julisa from [facility] / , patient has been accepted and may go to room 515B, accepting physician is , requested for patient's nurse Lauren to call and give report in 30 minutes, RN Lauren made aware. I called and spoke with patient's mother Heidi , informed her patient has been accepted at [facility]. Per Heidi, she would like to take patient to [facility]. I provided Heidi with [facility]' address and phone number. Addendum: 03/31/18 at 1704 by Rere Patrick SS Julisa from [facility] came earlier today to hospital and met with patient.
[2018-03-31] MEDS ORDERED: LANTUS SUBQ (17:14)
[2018-03-31] MEDS ORDERED: DOCU-299 PO (17:14)
[2018-03-31] MEDS ORDERED: RIS1 PO (17:14)
[2018-03-31] MEDS ORDERED: HUMSLIDE SUBQ (17:14)
[2018-03-31] MEDS ORDERED: GLU500 PO (17:14)
[2018-03-31] MEDS ORDERED: NYSTRC TP (17:14)
[2018-03-31] MEDS ORDERED: FLUC100T1 PO (17:14)
--- NOTE | 2018-03-31 17:40 | NUR ---
CALLED [facility] AND GAVE REPORT.
--- NOTE | 2018-03-31 18:00 | NUR ---
REMOVED IJ FROM PATIENT. TOLERATED WELL. NO SIGNS AND SYMPTOMS OF DISTRESS AT THIS TIME. PATIENT WANTS TO GO SHOWER.
--- NOTE | 2018-03-31 18:50 | NUR ---
PATIENT GOING TO [facility]. DISCHARGE ORDER IS IN PLACE. GAVE PATIENT DISCHARGE INSTRUCTIONS. SHE VERBALIZED UNDERSTANDING. MOM IS GOING TO DRIVE PATIENT TO SNF. ALL BELONGINGS ARE WITH PATIENT. REMOVED ID BANDS. WILL WHEEL PATIENT OUT. PATIENT HAS NO SIGNS AND SYMPTOMS OF DISTRESS NOTED AT THIS TIME.
--- NOTE | 2018-04-01 09:19 | NUR ---
Notified patient no longer needs placement DC to SNF.
== END 2018-03-31 18:50 | DRG 420 ==
LOC: MED 12:51 → MIC 16:39 → MTU 03-27 02:57 → MIC 03-27 03:06 → MTU 03-27 19:05
PROVIDERS: ADMIT Family Medicine; ATTEND Family Medicine
PROC: 02HV33Z Insertion of Infusion Device into Superior Vena Cava, Percutaneous Approach (ICD-10-PCS; principal; 2018-03-28)
PROC: B548ZZA Ultrasonography of Superior Vena Cava, Guidance (ICD-10-PCS; 2018-03-28)
DX: E11.10 Type 2 diabetes mellitus with ketoacidosis without coma (principal); N17.0 Acute kidney failure with tubular necrosis; J96.00 Acute respiratory failure, unspecified whether with hypoxia or hypercapnia; K85.90 Acute pancreatitis without necrosis or infection, unspecified; E87.2 Acidosis; E66.01 Morbid (severe) obesity due to excess calories; B37.2 Candidiasis of skin and nail; E87.8 Other disorders of electrolyte and fluid balance, not elsewhere classified; E83.41 Hypermagnesemia; E87.1 Hypo-osmolality and hyponatremia; E83.51 Hypocalcemia; F20.9 Schizophrenia, unspecified; E87.6 Hypokalemia; E86.0 Dehydration; F31.9 Bipolar disorder, unspecified; E83.39 Other disorders of phosphorus metabolism; L30.4 Erythema intertrigo; L30.9 Dermatitis, unspecified; Z68.37 Body mass index [BMI] 37.0-37.9, adult; Z80.9 Family history of malignant neoplasm, unspecified; Z83.3 Family history of diabetes mellitus; N39.0 Urinary tract infection, site not specified
CPT/HCPCS: 36415; 36600; 70450; 71045; 80048; 80053; 80305; 81001; 82009; 82150; 82803; 82948; 83036; 83605; 83690; 83735; 84100; 84439; 84443; 84484; 85025; 86702; 87040; 87081; 87086; 93005; 93925; 93970; 96374; 96375; 97110; 97116; 97530; 99285; G0482; J1642; J1815; J2060; J2543; J3475; J3480; J7030; Q0092